=== PATIENT | female | born 1945 | race Caucasian/White ===

== ENCOUNTER 2017-03-30 09:49 | Day surgery (SDC) | payer OTHER ==
[~2017-03-30] VITALS: Ht 152.4 cm; Wt 51.0 kg
[2017-03-30 10:10] VITALS: BP 175/91; PULSE 89; RESP 18; TEMP 98.3; O2SAT 97
[2017-03-30 10:47] LABS: AUTOMATED NEUTROPHIL # 8.5 TH/MM3 (1.8-7.7); BASOPHIL # 0.1 TH/MM3 (0-0.2); BASOPHIL % 0.9 % (0.0-2.0); EOSINOPHIL # 0.2 TH/MM3 (0-0.4); EOSINOPHIL % 1.7 % (0.0-4.0); HEMATOCRIT 31.3 % (35.0-46.0); HEMOGLOBIN 10.1 GM/DL (11.6-15.3); LYMPH % 13.1 % (9.0-44.0); LYMPHOCYTE # 1.4 TH/MM3 (1.0-4.8); MEAN CELL VOLUME 88.7 FL (80.0-100.0); MEAN CORPUSCULAR HEMOGLOBIN 28.5 PG (27.0-34.0); MEAN CORPUSCULAR HGB CONC 32.2 % (32.0-36.0); MEAN PLATELET VOLUME 9.2 FL (7.0-11.0); MONO % 7.5 % (0.0-8.0); MONOCYTE # 0.8 TH/MM3 (0-0.9); NEUT % 76.8 % (16.0-70.0); PLATELET COUNT 285 TH/MM3 (150-450); RED BLOOD COUNT 3.53 MIL/MM3 (4.00-5.30); RED CELL DISTRIBUTION WIDTH 13.9 % (11.6-17.2)
[2017-03-30 10:57] LABS: PROTHROMBIN TIME - PATIENT 10.3 SEC (9.8-11.6)
[2017-03-30] MEDS ORDERED: METO1TAB42 PO (10:57)
[2017-03-30] MEDS ORDERED: PRAV40TA2 PO (10:57)
[2017-03-30] MEDS ORDERED: LISI-515 PO (10:57)
[2017-03-30] MEDS ORDERED: LEVO75TA3 PO (10:57)
[2017-03-30] MEDS ORDERED: TRAM50TA PO (11:01)
[2017-03-30 11:07] LABS: BICARBONATE 21.8 MEQ/L (21.0-32.0); CALCIUM 8.7 MG/DL (8.5-10.1); CREATININE 2.55 MG/DL (0.50-1.00)
[2017-03-30] MEDS ORDERED: ASPIRIN 81 MG CHEW TAB PO SCH (12:30)
--- NOTE | 2017-03-30 18:23 | EKG ---
Date Performed: 03/30/2017 Time Performed: 10:34:08 PTAGE: 71 years EKG: Sinus rhythm . Extensive ST-T changes are nonspecific Borderline ECG NO PREVIOUS TRACING DOCTOR: Lorri Morales Interpretating Date/Time 03/30/2017 18:23:08
== END 2017-03-30 11:00 | disposition home or self-care (01) ==
LOC: HDOC 09:49 → HDIC 09:49 → HDOC 11:00
PROVIDERS: ATTEND Internal Medicine Interventional Cardiology
DX: I50.9 Heart failure, unspecified (principal); R94.4 Abnormal results of kidney function studies; Z01.810 Encounter for preprocedural cardiovascular examination; Z01.818 Encounter for other preprocedural examination; Z53.09 Procedure and treatment not carried out because of other contraindication
CPT/HCPCS: 80048; 85025; 85610; 93005; G0463; 99211

== ENCOUNTER 2017-04-11 11:01 | Day surgery (SDC) | payer OTHER ==
[2017-04-11 11:49] LABS: BASOPHIL # 0.1 TH/MM3 (0-0.2); EOSINOPHIL # 0.3 TH/MM3 (0-0.4); EOSINOPHIL % 3.5 % (0.0-4.0); HEMATOCRIT 31.8 % (35.0-46.0); HEMO FLAGS DIFF FINAL; HEMOGLOBIN 10.7 GM/DL (11.6-15.3); LYMPHOCYTE # 1.5 TH/MM3 (1.0-4.8); MEAN CELL VOLUME 87.9 FL (80.0-100.0); MEAN CORPUSCULAR HEMOGLOBIN 29.5 PG (27.0-34.0); MEAN CORPUSCULAR HGB CONC 33.5 % (32.0-36.0); MEAN PLATELET VOLUME 9.1 FL (7.0-11.0); MONOCYTE # 0.6 TH/MM3 (0-0.9); NEUT % 67.5 % (16.0-70.0); PLATELET COUNT 310 TH/MM3 (150-450); RED BLOOD COUNT 3.62 MIL/MM3 (4.00-5.30); WHITE BLOOD COUNT 7.4 TH/MM3 (4.0-11.0)
[2017-04-11 11:59] LABS: APTT (PATIENT) 26.6 SEC (24.3-30.1); PROTHROMBIN TIME - PATIENT 10.1 SEC (9.8-11.6)
[2017-04-11 12:14] LABS: ANION GAP 9 MEQ/L (5-15); BICARBONATE 23.7 MEQ/L (21.0-32.0); BLOOD UREA NITROGEN 42 MG/DL (7-18); CALCIUM 8.9 MG/DL (8.5-10.1); CHLORIDE 105 MEQ/L (98-107); CREATININE 2.44 MG/DL (0.50-1.00); GLOMERULAR FILTRATION RATE 20 ML/MIN (>89); GLUCOSE,RANDOM 102 MG/DL (74-106); POTASSIUM 4.2 MEQ/L (3.5-5.1); SODIUM (NA) 138 MEQ/L (136-145)
[2017-04-11] MEDS ORDERED: HEPARIN SODIUM - IV 10,000 UNITS/10 ML VIAL (15:26)
[2017-04-11] MEDS ORDERED: NITROGLYCERIN 2% OINT 1 GM PACKET (15:35)
[2017-04-11] MEDS ORDERED: NITROGLYCERIN-D5W 50 MG/250 ML 250 ML (15:35)
[2017-04-11] MEDS ORDERED: ADENOSINE STRESS TEST INJ 90 MG/30 ML VIAL (15:37)
[2017-04-11] MEDS: BACITRACIN OINT 0.9 GM PKT TOP (16:00)
[2017-04-11] MEDS: MISC INFORMATION XX (16:00)
[2017-04-11] MEDS ORDERED: SODIUM CHLORIDE 0.9% FLUSH 10 ML FLUSH IV FLUSH (16:00)
[2017-04-11] MEDS: NS 1000P @30 MLS/HR (KVO) IV (16:59)
[2017-04-11] MEDS: HEPARIN-NS/PF INJ 1,000 ML (16:59)
[2017-04-11] MEDS: IOHEXOL 350 MG/ML 50 ML BTL (for Cath Lab) OTHER (16:59)
[2017-04-11] MEDS: MIDAZOLAM HCL 2 MG/2 ML VIAL (17:00)
[2017-04-11] MEDS: ASPIRIN EC 81 MG TABEC PO (17:01)
[2017-04-11] MEDS: ISOSORBIDE MONONITRATE 60 MG TAB PO (17:06)
[2017-04-11] MEDS ORDERED: NITROGLYCERIN-DEXTROSE 5% 250 ML for hypertension IV (18:30)
[2017-04-11] MEDS: ONDANSETRON HCL 4 MG/2 ML VIAL (18:55)
[2017-04-11] MEDS ORDERED: ONDANSETRON HCL 4 MG/2 ML VIAL IV PUSH (19:45)
[2017-04-11] MEDS: SODIUM CHLORIDE 0.9% FLUSH 10 ML FLUSH IV FLUSH (20:11)
[2017-04-11] MEDS: ATORVASTATIN 80 MG TAB PO (20:11)
[2017-04-12 05:40] LABS: AUTOMATED NEUTROPHIL # 6.8 TH/MM3 (1.8-7.7); BASOPHIL # 0.1 TH/MM3 (0-0.2); EOSINOPHIL % 0.5 % (0.0-4.0); HEMATOCRIT 29.1 % (35.0-46.0); HEMO FLAGS DIFF FINAL; HEMOGLOBIN 9.8 GM/DL (11.6-15.3); LYMPH % 12.3 % (9.0-44.0); LYMPHOCYTE # 1.1 TH/MM3 (1.0-4.8); MEAN CELL VOLUME 87.1 FL (80.0-100.0); MEAN CORPUSCULAR HEMOGLOBIN 29.3 PG (27.0-34.0); MEAN CORPUSCULAR HGB CONC 33.6 % (32.0-36.0); MEAN PLATELET VOLUME 9.9 FL (7.0-11.0); MONO % 8.1 % (0.0-8.0); MONOCYTE # 0.7 TH/MM3 (0-0.9); NEUT % 78.1 % (16.0-70.0); PLATELET COUNT 271 TH/MM3 (150-450); RED BLOOD COUNT 3.34 MIL/MM3 (4.00-5.30); RED CELL DISTRIBUTION WIDTH 14.1 % (11.6-17.2); WHITE BLOOD COUNT 8.7 TH/MM3 (4.0-11.0)
[2017-04-12 05:53] LABS: ALBUMIN 2.8 GM/DL (3.4-5.0); ANION GAP 9 MEQ/L (5-15); AST (GOT) 18 U/L (15-37); BICARBONATE 20.6 MEQ/L (21.0-32.0); BLOOD UREA NITROGEN 34 MG/DL (7-18); CALCIUM 8.3 MG/DL (8.5-10.1); CHLORIDE 109 MEQ/L (98-107); CREATININE 2.18 MG/DL (0.50-1.00); GLOMERULAR FILTRATION RATE 22 ML/MIN (>89); GLUCOSE,RANDOM 89 MG/DL (74-106); POTASSIUM 4.4 MEQ/L (3.5-5.1); SODIUM (NA) 139 MEQ/L (136-145)
[2017-04-12 05:54] LABS: ALT (GPT) 12 U/L (10-53); CHOLESTEROL 170 MG/DL (120-200); DIRECT BILIRUBIN ADULT 0.1 MG/DL (0.0-0.2); TRIGLYCERIDES 109 MG/DL (42-150)
[2017-04-12 05:57] LABS: ALKALINE PHOSPHATASE 50 U/L (45-117); HDL CHOLESTEROL 80.6 MG/DL (40.0-60.0); INDIRECT BILIRUBIN 0.2 MG/DL (0.0-0.8); LDL CHOLESTEROL 68 MG/DL (0-99); TOTAL BILIRUBIN ADULT 0.3 MG/DL (0.2-1.0); TOTAL PROTEIN 6.3 GM/DL (6.4-8.2)
[2017-04-12 06:00] LABS: CREATINE KINASE 85 U/L (26-192)
[2017-04-12] MEDS: ISOSORBIDE MONONITRATE 60 MG TAB PO (06:15)
[2017-04-12] MEDS ORDERED: ASPIRIN 81 MG CHEW TAB PO (09:00)
== END 2017-04-12 11:13 | disposition home or self-care (01) ==
LOC: HDOC 11:01 → HDIC 11:01 → HCIS 17:18
DX: I25.110 Atherosclerotic heart disease of native coronary artery with unstable angina pectoris (principal); I13.10 Hypertensive heart and chronic kidney disease without heart failure, with stage 1 through stage 4 chronic kidney disease, or unspecified chronic kidney disease; I50.9 Heart failure, unspecified; I42.9 Cardiomyopathy, unspecified; N18.3 Chronic kidney disease, stage 3 (moderate); J44.9 Chronic obstructive pulmonary disease, unspecified
CPT/HCPCS: 80048; 80061; 80076; 82550; 82810; 85002; 85002-91; 85025; 85610; 85730; 93005; 93460; 93571